=== PATIENT | female | born 1985 | race Caucasian/White ===

== ENCOUNTER 2024-02-22 15:30 | Emergency (ER) | payer BC, SELFPAY ==
[2024-02-22 15:41] VITALS: BP 129/89
[2024-02-22 16:00] LABS: % Basophils 0.2 % (0-2); % Eosinophils 2.2 % (0-6); % Immature Granulocytes 0.2 % (0-0.5); % Lymphocytes 36.1 % (20.5-51.1); % Monocytes 8.8 % (1.7-9.3); % Neutrophils 52.5 % (42.2-75.2); Absolute Eosinophils 0.1 10^3/uL (0-0.7); Absolute Lymphocytes 1.8 10^3/uL (1.2-3.4); Absolute Monocytes 0.4 10^3/uL (0.1-0.6); Absolute Neutrophils 2.6 10^3/uL (1.4-6.5); Hematocrit 41.2 % (37.0-47.0); Hemoglobin 14.4 g/dL (12.0-16.0); Mean Corpuscular Hgb 29.4 pg (27.0-31.0); Mean Corpuscular Volume 84.1 fL (81.0-99.0); Mean Platelet Volume 10.1 fL (7.4-10.4); Nucleated Red Blood Cells % 0 %; Platelet Count 214 10^3/uL (130-400); Red Cell Dist. Width 12.6 % (11.5-14.5)
[2024-02-22 16:11] LABS: HCG, Serum Qualitative Screen Negative
[2024-02-22 16:14] LABS: ALT (SGPT) 12 U/L (0-35); AST (SGOT) 23 U/L (14-36); Albumin 4.9 g/dl (3.5-5.0); Alkaline Phosphatase 62 U/L (38-126); Blood Urea Nitrogen 11 mg/dl (7-17); Calcium 9.5 mg/dl (8.4-10.2); Carbon Dioxide 25 mmol/L (22-30); Chloride 103 mmol/L (98-107); Glucose 95 mg/dl (70-99); Potassium 4.4 mmol/L (3.5-5.1); Sodium 140 mmol/L (135-145); Total Bilirubin 0.7 mg/dl (0.2-1.3); Total Protein 7.8 g/dl (6.3-8.2); eGFR > 60.00
[2024-02-22 18:32] VITALS: BP 112/86; BMI 32.3
[2024-02-22 19:00] VITALS: BP 134/95
--- NOTE | 2024-02-22 19:03 | ED.GENMED ---
History of Present Illness
General
Chief Complaint: Rectal Bleeding
Source: patient
Exam Limitations: none
Time Seen by Provider: 02/22/24 18:53
Nursing documentation reviewed up to this point in time: agreed with
History of Present Illness
History of Present Illness:
38-year-old female states yesterday she had a painful bowel movement and afterwards when she wiped saw blood mixed with stool and on the toilet paper. Today she had continuous pain in the rectum and felt something seeped out from her rectum and
went to the bathroom and when she wiped there was blood again. She denies abdominal pain, denies feeling lightheaded or dizzy, denies CP or SOB.
Past History
Past History
ED Past Medical History: Other (Ovarian cyst)
ED Past Surgical History: None
Social History
Tobacco: Non-smoker
Alcohol: Occasional
Drug: None
Personal:
Living: with family
Employment: Employed
Family History
Family History: Negative Early CAD or Sudden
Review of Systems
Review of Systems
Allergies reviewed?: Yes
All Other Systems: ROS reviewed and negative except as documented in HPI and ROS
Respiratory: Denies trouble breathing
Cardiac: Denies chest pain
ABD/GI: Reports bloody stools (blood mixed with stool, painful BM past 2 days. ); Denies abdominal pain, nausea, diarrhea or constipated
: Denies dysuria or difficulty voiding
Neurological: Reports no symptoms
Phy Exam
Physical Exam
Physical Exam:
GENERAL: No acute distress. A&Ox3.
CONSTITUTIONAL: Afebrile.
EYES: clear, conjunctivae normal
RESPIRATORY: Regular respirations, nonlabored, lungs clear.
CARDIOVASCULAR: Regular rate and rhythm, no murmurs, no rubs.
GI: Soft, nontender, normal BS
Rectal: few small perianal skin colored tags, no thrombosed hemorrhoid, small amount BRB immediately around anus. Rectal exam non tender, no palpable mass, no stool in rectal vault.
MUSCULOSKELETAL: Moves with ease. Well perfused.
SKIN: Warm, dry, pink
PSYCH: Normal mood and affect. Well kept, interactive and appropriate
NEUROLOGIC: Awake, alert and oriented. No focal neurological deficits
Course
Orders/Labs/Results
Orders:
Orders
02/22/24 15:46
Test Result ONCE
02/22/24 15:50
Complete Blood Count/With Diff Urgent
Comprehensive Metabolic Panel Urgent
HCG, Serum Qualitative Screen Urgent
Comment: Notify provider if positive test present
02/22/24 19:40
Anusol Hc Suppository [Anusol Hc] 25 mg RECTAL NOW STA
02/22/24 15:50
02/22/24 15:50
Vital Signs
Initial and Last Documented VS:
Initial Vital Signs
Temp Pulse Resp BP Pulse Ox
98.1 F 73 20 129/89 99
02/22/24 15:41 02/22/24 15:41 02/22/24 15:41 02/22/24 15:41 02/22/24 15:41
Last Documented Vital Signs
Temp Pulse Resp BP Pulse Ox
98.5 F 72 18 134/95 99
02/22/24 18:32 02/22/24 19:30 02/22/24 19:30 02/22/24 19:00 02/22/24 19:30
MDM/Problems Addressed
Differential Diagnosis Includes:
bleeding hemorrhoid, thrombosed hemorrhoid, anal fissure
MDM/Problems Addressed:
38-year-old female states yesterday she had a painful bowel movement and afterwards when she wiped saw blood mixed with stool and on the toilet paper. Today she had continuous pain in the rectum and felt something seeped out from her rectum and
went to the bathroom and when she wiped there was blood again. She denies abdominal pain, denies feeling lightheaded or dizzy, denies CP or SOB.
With perianal pain w passage of stool, no abdominal pain, labs normal, non tender rectal exam, no significant active bleeding, most likely bleeding hemorrhoid.
Plan: Anusol HC here and given rx to fill if needed
Return instructions reviewed.
Pt comfortable with plan
*Critical Care Note
Total Time (30-74mins, 75-104mins- exclusive of procedures): Not Applicable
ED Attending Note
-
Portions of this chart may have been created with voice recognition software.� Occasional wrong word or��sound alike� substitutions may have occurred due to the inherent limitations of voice recognition software.
Discharge Plan
Departure
Patient Disposition: Home (Routine Discharge)
Date of Disposition: 02/22/24
Time of Disposition: 19:09
Patient with high blood pressure during this ER visit?: No
Condition: Good
Discharge Problem:
Bleeding hemorrhoid
Instructions: Hemorrhoids (DC)
Prescriptions:
New
hydrocortisone acetate [Anusol-HC] 25 mg suppository
25 mg W[place] BID PRN (Reason: hemorrhoids) Qty: 12 0RF
No Action
diphenhydramine-acetaminophen [Tylenol PM Extra Strength] 25-500 mg Tablet
1 tab PO HSPRN PRN (Reason: mild pain/sleep)
psyllium seed (sugar) Powder
1 tsp PO DAILY
tirzepatide 7.5 mg/0.5 mL Pen Injector
7.5 mg SC SA
Referrals:
your, doctor [Other] - As needed
Rodolfo Rico MD [Active] - As needed
UNKNOWN - PT DOES,NOT KNOW [Unknown Provider] -
Activity Restrictions/Additional Instructions:
As we discussed, nothing worrisome in you blood work, all normal. No sign of significant blood loss
you most likely have a bleeding hemorrhoid.
You were given an Anusol with steroid suppository.
Use the suppositories as needed.
If the bleeding continues beyond the next week, if it worsens, you develop abdominal pain, fever, vomiting, feel worse in any way, return here for re evaluation.
I've given you the name of a colorectal doctor to use if you have continuing hemorrhoid problems.
Interventions
Interventions:
*Risk Screen - Suicide Last Done: 02/22/24 15:41
*General Assessment Last Done: 02/22/24 15:41
*Neglect/Abuse Screening Last Done: 02/22/24 15:41
*Nursing Disposition Last Done: 02/22/24 20:20
XS-Thhyoj-Yegkhphamd Assessment Last Done: 02/22/24 18:35
ED- Cardiac Assessment Last Done: 02/22/24 18:35
ED- Pulmonary Assessment Last Done: 02/22/24 18:35
Discharge Date and Time
Discharge Date/Time: 02/22/24 20:21
Print Language: [place]
[2024-02-22] MEDS: ANUSOL HC 25 MG RECTAL (20:12)
== END 2024-02-22 20:21 | disposition home or self-care (01) ==
LOC: EMR 15:30
PROVIDERS: Emergency Medicine; EMERGENCY PHYSICIAN Emergency Medicine; FAMILY PHYSICIAN Family Medicine
DX: K64.9 Unspecified hemorrhoids (principal)
CPT/HCPCS: 99283; 80053; 84703; 85025